=== PATIENT | male | born 1945 | race Caucasian/White ===

== ENCOUNTER 2017-06-02 15:50 | Emergency (ER) | payer MEDICARE, BC ==
[2017-06-02] MEDS ORDERED: Midazolam 1 MG/ML 2 ML SDV IV ONE ×2 (15:51)
[2017-06-02] MEDS ORDERED: ePHEDrine 50 MG/ML SDV IV ONE (15:51)
[2017-06-02] MEDS ORDERED: EPINEPHrine 1:10,000 1 MG/10 ML Syringe IV ONE (15:51)
[2017-06-02] MEDS ORDERED: fentaNYL 100 MCG/2 ML SDV IV ONE ×2 (15:51)
[2017-06-02] MEDS ORDERED: Rocuronium 50 MG/5 ML Vial IV ONE (15:51)
--- NOTE | 2017-06-02 16:09 | EDM.PDOC ---
ED HPI GENERAL MEDICAL PROBLEM - General Stated Complaint: [id number] UNRESPONSIVE Time Seen by Provider: 06/02/17 15:50 Source of Information: Reports: Family History Limitations: Reports: Respiratory Distress - History of Present Illness INITIAL COMMENTS - FREE TEXT/NARRATIVE: This 72 yo male patient was brought to the ED by family due to altered mentation and shortness of breath. The patient was returning to his home from [place]. The patient's family reported that the patient started to have increased difficulties at about [place], but became unresponsive about 10 miles outside of [place]. Upon arrival in the ED, the patient was unresponsive, pale an unable to ambulate. With the assist of 4 individuals, the patient was transferred to the ED bed. The patient was pale with a respiratory rate in the 30's with little effort of breathing. The patient was placed on a non- rebreather which increased his oxygen sat to 98%. The patient was placed on bipap which further stabilized the patient. EKG demonstrated a fib, Trop (-), WBC 14.2. After lab results were received, the patient was sent to radiology for CT. Prior to getting the CT, the patient had a cardiac arrest, CPR was started and the patient was brought back to the ED. CPR was continued. The patient was given 2 doses of EPI and got a return of spontaneous pulse. During CPR, the patient did have a wide complex pulseless V-tach. The patient was given Amniodarone (150). The patient was intubated by anesthesia. [facility] was called for transport. Called [facility] (due to patient's personal history with pulmonology in [place] after consulting family). Dr. Pastor accepted the patient for continued evaluation and management. Onset: Today Duration: Constant Location: Reports: Generalized Quality: Reports: Other Severity: Severe Improves with: Reports: Other (oxygen) Worsens with: Reports: Movement Context: Reports: Other - Related Data Allergies Allergy/AdvReac Type Severity Reaction Status Date / Time No Known Allergies Allergy Verified 06/02/17 16:23 Home Meds: Home Meds Furosemide 06/02/17 [History] Insulin Aspart [NovoLOG] 06/02/17 [History] Insulin Glarg,Human.Rec.Analog [Lantus] 06/02/17 [History] Levothyroxine [Synthroid] 50 mcg PO 06/02/17 [History] Lisinopril [Prinivil] 06/02/17 [History] Metoprolol Tartrate 50 mg PO 06/02/17 [History] Oxybutynin [Oxybutynin ER] 5 mg PO 06/02/17 [History] Rosuvastatin [Crestor] 20 mg PO BEDTIME 06/02/17 [History] ED ROS GENERAL - Review of Systems Review Of Systems: ROS reveals no pertinent complaints other than HPI. ED EXAM, GENERAL - Physical Exam Exam: See Below Exam Limited By: Other (unresponsive) General Appearance: Obtunded, Severe Distress Eye Exam: Bilateral Eye: PERRL Ears: Normal External Exam Nose: Normal Inspection Throat/Mouth: Normal Inspection Head: Atraumatic Neck: Normal Inspection, Supple, Non-Tender, Full Range of Motion Respiratory/Chest: Decreased Breath Sounds Cardiovascular: Irregularly Irregular GI/Abdominal: Distended, Other (morbid obesity) (Male) Exam: Deferred Rectal (Males) Exam: Deferred Neurological: Unresponsive Skin Exam: Pallor Lymphatic: No Adenopathy Course - Vital Signs Last Recorded V/S: Last Vital Signs Temp 35.9 C 06/02/17 16:21 Pulse 71 06/02/17 16:21 Resp BP 189/79 H 06/02/17 16:21 Pulse Ox 100 06/02/17 16:21 - Orders/Labs/Meds Orders: Active Orders 24 hr Category Date Time Status BIPAP [RT BiPAP/CPAP] [RC] ASDIRECTED Care 06/02/17 16:25 Active EKG Documentation Completion [RC] URGENT Care 06/02/17 15:57 Active RT Aerosol Therapy [RC] ASDIRECTED Care 06/02/17 16:35 Active Cervical Spine wo Cont [CT] Urgent Exams 06/02/17 16:38 Ordered Chest 1V Frontal [CR] Urgent Exams 06/02/17 17:19 Ordered Head wo Cont [CT] Urgent Exams 06/02/17 16:38 Ordered ABG [BLOOD GAS ARTERIAL] [BG] Stat Lab 06/02/17 16:33 Ordered Labs: Laboratory Tests 06/02/17 06/02/17 06/02/17 Range/Units 16:07 16:07 16:10 WBC 14.2 H (5.0-10.0) 10^3/uL RBC 5.06 (4.6-6.2) 10^6/uL Hgb 12.3 L (14.0-18.0) g/dL Hct 44.1 (40.0-54.0) % MCV 87.2 (80-100) fL MCH 24.3 L (27.0-34.0) pg MCHC 27.9 L (33.0-35.0) g/dL Plt Count 282 (150-450) 10^3/uL Neut % (Auto) 74.7 (42.2-75.2) % Lymph % (Auto) 14.9 L (20.5-50.1) % [place] % (Auto) 8.6 H (2-8) % Eos % (Auto) 1.5 (1.0-3.0) % Baso % (Auto) 0.3 (0.0-1.0) % Sodium 138 (135-145) mmol/L Potassium 4.4 (3.6-5.0) mmol/L Chloride 98 L (101-111) mmol/L Carbon Dioxide 32.0 H (21.0-31.0) mmol/L Anion Gap 12.4 BUN 29 H (7-18) mg/dL Creatinine 1.3 (0.6-1.3) mg/dL Est Cr Clr Drug Dosing 39.08 mL/min Estimated GFR (MDRD) 54 BUN/Creatinine Ratio 22.30 Glucose 322 H (74-105) mg/dL POC Glucose 325 H (83-110) mg/dl Calcium 8.7 (8.4-10.2) mg/dl Total Bilirubin 0.6 (0.2-1.0) mg/dL AST 32 (10-42) IU/L ALT 16 (10-60) IU/L Alkaline Phosphatase 89 (42-121) IU/L Troponin I < 0.02 (0.00-0.02) ng/ml Total Protein 8.6 H (6.7-8.2) g/dl Albumin 3.6 (3.2-5.5) g/dl Globulin 5.0 Albumin/Globulin Ratio 0.72 Meds: Medications Discontinued Medications Generic Name Dose Route Start Last Admin Trade Name Freq PRN Reason Stop Dose Admin Albuterol/Ipratropium 3 ml 06/02/17 16:34 Duoneb 3.0-0.5 Mg/3 Ml NEB 06/02/17 16:35 ONETIME ONE Albuterol/Ipratropium Confirm 06/02/17 16:36 Duoneb 3.0-0.5 Mg/3 Ml Administered 06/02/17 16:37 Dose 3 ml .ROUTE .STK-MED ONE Departure - Departure Time of Disposition: 18:00 Disposition: DC/Tfer to Acute Hospital 02 Condition: Critical Clinical Impression: Cardiac arrest Respiratory failure Qualifiers: Chronicity: acute Respiratory failure complication: hypoxia Qualified Code(s): J96.01 - Acute respiratory failure with hypoxia - Discharge Information Referrals: John Haider MD [Primary Care Provider] - Forms: Interfacility Transfer EMTALA Care Plan Goals: Discussed the history, examination, lab, EKG, x-ray and treatments with Dr. Pastor ([facility]). Dr. Pastor accepted the patient for continued evaluation and further management. The patient will be treated by [facility]. - My Orders Last 24 Hours: My Active Orders 06/02/17 15:57 EKG Documentation Completion [RC] URGENT 06/02/17 16:25 BIPAP [RT BiPAP/CPAP] [RC] ASDIRECTED 06/02/17 16:33 ABG [BLOOD GAS ARTERIAL] [BG] Stat 06/02/17 16:35 RT Aerosol Therapy [RC] ASDIRECTED 06/02/17 16:38 Cervical Spine wo Cont [CT] Urgent Head wo Cont [CT] Urgent 06/02/17 17:19 Chest 1V Frontal [CR] Urgent - Assessment/Plan Last 24 Hours: My Active Orders 06/02/17 15:57 EKG Documentation Completion [RC] URGENT 06/02/17 16:25 BIPAP [RT BiPAP/CPAP] [RC] ASDIRECTED 06/02/17 16:33 ABG [BLOOD GAS ARTERIAL] [BG] Stat 06/02/17 16:35 RT Aerosol Therapy [RC] ASDIRECTED 06/02/17 16:38 Cervical Spine wo Cont [CT] Urgent Head wo Cont [CT] Urgent 06/02/17 17:19 Chest 1V Frontal [CR] Urgent
[2017-06-02 16:32] LABS: CHLORIDE,CL 98 mmol/L (101-111); SODIUM,NA 138 mmol/L (135-145)
[2017-06-02] MEDS ORDERED: Albuterol/Ipratropium 3.0-0.5 MG/3 ML Neb Soln NEB ONE (16:34)
[2017-06-02] MEDS ORDERED: Albuterol/Ipratropium 3.0-0.5 MG/3 ML Neb Soln ONE (16:36)
[2017-06-02] MEDS ORDERED: Midazolam 1 MG/ML 2 ML SDV ONE (17:39)
[2017-06-02] MEDS ORDERED: fentaNYL 100 MCG/2 ML SDV ONE (17:39)
[2017-06-02] MEDS ORDERED: EPINEPHrine 1:10,000 1 MG/10 ML Syringe ONE (19:05)
--- NOTE | 2017-06-06 13:27 | EKG ---
06/02/2017- SEAN SANTOYO - FINDINGS: EKG, from 3:57 p.m. per my reading, shows an atrial fibrillation with PVC. [facility] /[id number]
--- NOTE | 2017-06-06 13:27 | EKG ---
06/02/2017- SEAN SANTOYO - FINDINGS: EKG, per my reading, shows atrial fibrillation with a ventricular rate of 50s with PVCs. [facility] /[id number]
== END 2017-06-02 18:30 ==
LOC: DL.ED 15:50
DX: I46.9 Cardiac arrest, cause unspecified (principal); J96.01 Acute respiratory failure with hypoxia; Z79.4 Long term (current) use of insulin
CPT/HCPCS: 31500; 36415; 71045; 80053; 82962; 84484; 85025; 92950; 93005; 93010; 94660; 96365; 96375; 96376; 99291; 99292; J0171; J2250; J3010; 99284

== ENCOUNTER 2018-06-07 21:28 | Inpatient (IN) | payer MEDICARE, BC ==
[~2018-06-07 21:28] MED LIST: Albuterol/Ipratropium 3.0-0.5 MG/3 ML Neb Soln NEB ONE; Dexamethasone 4 MG/ML SDV IVPUSH ONE
[2018-06-07] MEDS ORDERED: Furosemide 20 MG/2 ML VIAL IVPUSH ONE (21:30)
[2018-06-07 22:13] LABS: ANION GAP 11.7; CHLORIDE,CL 95 mmol/L (101-111); SODIUM,NA 139 mmol/L (135-145)
[2018-06-07 22:17] LABS: BASE EXCESS ARTERIAL 6 mmol/L ((-2)-(+3)); BICARBONATE,ARTERIAL 37.6 mmol/L (22-26); O2 DELIVERY DEVICE BIPAP; O2 SATURATION ARTERIAL 90 % (95-100); PO2 ARTERIAL 65 mmHg (70-100)
--- NOTE | 2018-06-07 22:44 | EDM.PDOC ---
ED HPI GENERAL MEDICAL PROBLEM - General Chief Complaint: Respiratory Problem Stated Complaint: UNKNOWN Time Seen by Provider: 06/07/18 21:29 Source of Information: Reports: Patient, Family History Limitations: Reports: Other (sob) - History of Present Illness INITIAL COMMENTS - FREE TEXT/NARRATIVE: family states pt been having respiratory problems for many years and sometimes he need a good "blow-out" with BiPAP. and concepcion pt can be here for 12 hours for this. explained to family the lack of appropriate medical back-up here but will check with [facility]. 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 Lower Back Pain Score (Numeric/FACES): 8 - Related Data Allergies Allergy/AdvReac Type Severity Reaction Status Date / Time No Known Allergies Allergy Verified 06/07/18 21:36 Home Meds: Home Meds Furosemide 06/02/17 [History] Insulin Aspart [NovoLOG] 06/02/17 [History] Insulin Glarg,Human.Rec.Analog [Lantus] 06/02/17 [History] Levothyroxine [Synthroid] 50 mcg PO 06/02/17 [History] Lisinopril [Prinivil] 06/02/17 [History] Metoprolol Tartrate 50 mg PO 06/02/17 [History] Oxybutynin [Oxybutynin ER] 5 mg PO 06/02/17 [History] Rosuvastatin [Crestor] 20 mg PO BEDTIME 06/02/17 [History] Past Medical History Cardiovascular History: Reports: Afib, Heart Failure, Hypertension Respiratory History: Reports: Asthma, COPD, Intubation, Difficult Musculoskeletal History: Reports: Osteoporosis Psychiatric History: Reports: Anxiety Endocrine/Metabolic History: Reports: Diabetes, Type I Oncologic (Cancer) History: Reports: Bladder Social & Family History - Family History Family Medical History: Noncontributory - Tobacco Use Smoking Status *Q: Unknown Ever Smoked - Caffeine Use Caffeine Use: Reports: Coffee - Recreational Drug Use Recreational Drug Use: No ED ROS GENERAL - Review of Systems Review Of Systems: ROS reveals no pertinent complaints other than HPI. ED EXAM, GENERAL - Physical Exam Exam: See Below Exam Limited By: Respiratory Distress General Appearance: Alert, Moderate Distress Ears: Hearing Grossly Normal Throat/Mouth: Normal Voice, No Airway Compromise Head: Atraumatic Neck: Non-Tender, Full Range of Motion Respiratory/Chest: Decreased Breath Sounds, Crackles, Rales, Rhonchi, Wheezing, Accessory Muscle Use Cardiovascular: Regular Rate, Rhythm GI/Abdominal: Soft, Non-Tender Neurological: Alert, Normal Cognition Psychiatric: Flat Affect Skin Exam: Warm, Dry, Normal Color Lymphatic: No Adenopathy Course - Vital Signs Last Recorded V/S: Last Vital Signs Temp 36.7 C 06/07/18 21:35 Pulse 132 H 06/07/18 22:54 Resp 24 H 06/07/18 21:35 BP 195/76 H 06/07/18 21:35 Pulse Ox 71 L 06/07/18 21:35 - Orders/Labs/Meds Orders: Active Orders 24 hr Category Date Time Status EKG Documentation Completion [RC] STAT Care 06/07/18 21:26 Active RT Aerosol Therapy [RC] ASDIRECTED Care 06/07/18 21:26 Active RT BiPAP/CPAP [RC] ASDIRECTED Care 06/07/18 22:53 Active ABG [BLOOD GAS ARTERIAL] [BG] Stat Lab 06/07/18 22:06 Ordered ABG [BLOOD GAS ARTERIAL] [BG] Stat Lab 06/07/18 23:25 Ordered CULTURE BLOOD [BC] Stat Lab 06/07/18 21:49 Received Labs: Laboratory Tests 06/07/18 06/07/18 06/07/18 Range/Units 21:49 21:49 21:49 WBC 17.0 H (5.0-10.0) 10^3/uL RBC 4.73 (4.6-6.2) 10^6/uL Hgb 13.7 L (14.0-18.0) g/dL Hct 44.7 (40.0-54.0) % MCV 94.5 D (80-100) fL MCH 29.0 (27.0-34.0) pg MCHC 30.6 L (33.0-35.0) g/dL Plt Count 270 (150-450) 10^3/uL Neut % (Auto) 76.2 H (42.2-75.2) % Lymph % (Auto) 16.0 L (20.5-50.1) % [place] % (Auto) 4.3 (2-8) % Eos % (Auto) 3.3 H (1.0-3.0) % Baso % (Auto) 0.2 (0.0-1.0) % Sodium 139 (135-145) mmol/L Potassium 3.7 (3.6-5.0) mmol/L Chloride 95 L (101-111) mmol/L Carbon Dioxide 36.0 H (21.0-31.0) mmol/L Anion Gap 11.7 BUN 20 H (7-18) mg/dL Creatinine 0.8 (0.6-1.3) mg/dL Est Cr Clr Drug Dosing 78.38 mL/min Estimated GFR (MDRD) > 60 BUN/Creatinine Ratio 25.00 Glucose 293 H (74-105) mg/dL Lactic Acid 1.4 (0.5-2.2) mmol/L Calcium 8.5 (8.4-10.2) mg/dl Total Bilirubin 0.6 (0.2-1.0) mg/dL AST 18 (10-42) IU/L ALT 12 (10-60) IU/L Alkaline Phosphatase 103 (42-121) IU/L Troponin I < 0.02 (0.00-0.02) ng/ml B-Natriuretic Peptide 58 (0-100) pg/ml Total Protein 8.5 H (6.7-8.2) g/dl Albumin 3.4 (3.2-5.5) g/dl Globulin 5.1 Albumin/Globulin Ratio 0.67 Meds: Medications Discontinued Medications Generic Name Dose Route Start Last Admin Trade Name Freq PRN Reason Stop Dose Admin Albuterol/Ipratropium 3 ml 06/07/18 21:25 06/07/18 21:59 Duoneb 3.0-0.5 Mg/3 Ml NEB 06/07/18 21:26 3 ml ONETIME ONE Administration Dexamethasone 12 mg 06/07/18 21:25 06/07/18 21:59 Dexamethasone IVPUSH 06/07/18 21:26 12 mg ONETIME ONE Administration Furosemide 20 mg 06/07/18 21:30 06/07/18 22:02 Lasix IVPUSH 06/07/18 21:31 20 mg ONETIME ONE Administration - Re-Assessments/Exams Free Text/Narrative Re-Assessment/Exam: 06/07/18 22:54 results discussed with family who state they have decided pt want to be DNR. case discussed with Dr Cintron who states will come in to eval' Departure - Departure Time of Disposition: 23:32 Disposition: Admitted As Inpatient 65 Condition: Fair Clinical Impression: COPD exacerbation, DNR no code (do not resuscitate), Acute respiratory distress - Discharge Information Forms: ED Department Discharge - My Orders Last 24 Hours: My Active Orders 06/07/18 21:26 EKG Documentation Completion [RC] STAT RT Aerosol Therapy [RC] ASDIRECTED 06/07/18 21:49 CULTURE BLOOD [BC] Stat 06/07/18 22:06 ABG [BLOOD GAS ARTERIAL] [BG] Stat 06/07/18 22:53 RT BiPAP/CPAP [RC] ASDIRECTED 06/07/18 23:25 ABG [BLOOD GAS ARTERIAL] [BG] Stat - Assessment/Plan Last 24 Hours: My Active Orders 06/07/18 21:26 EKG Documentation Completion [RC] STAT RT Aerosol Therapy [RC] ASDIRECTED 06/07/18 21:49 CULTURE BLOOD [BC] Stat 06/07/18 22:06 ABG [BLOOD GAS ARTERIAL] [BG] Stat 06/07/18 22:53 RT BiPAP/CPAP [RC] ASDIRECTED 06/07/18 23:25 ABG [BLOOD GAS ARTERIAL] [BG] Stat
[2018-06-07 23:30] LABS: BASE EXCESS ARTERIAL 6 mmol/L ((-2)-(+3)); BICARBONATE,ARTERIAL 35.8 mmol/L (22-26); O2 DELIVERY DEVICE BIPAP; O2 SATURATION ARTERIAL 89 % (95-100); PO2 ARTERIAL 62 mmHg (70-100)
[2018-06-07 23:37] LABS: PCO2 ARTERIAL 100 mmHg (35-45)
[2018-06-07 23:39] LABS: PCO2 ARTERIAL 84 mmHg (35-45)
[2018-06-07] MEDS ORDERED: LORazepam 2 MG/ML Syringe IVPUSH PRN (23:45)
[2018-06-07] MEDS ORDERED: Ondansetron 4 MG/2 ML SDV IVPUSH PRN (23:45)
[2018-06-08] MEDS: Piperacillin/Tazobactam 3.375 GM in Sodium Chloride 0.9% 100 ML IV SCH ×3 (00:30→11:56)
[2018-06-08] MEDS: Albuterol/Ipratropium 3.0-0.5 MG/3 ML Neb Soln NEB SCH ×3 (00:45→07:22)
[2018-06-08 07:13] LABS: ANION GAP 18.1; CHLORIDE,CL 94 mmol/L (101-111); SODIUM,NA 137 mmol/L (135-145)
[2018-06-08 08:21] LABS: ALLEN TEST PERFORMED; BASE EXCESS ARTERIAL 4 mmol/L ((-2)-(+3)); BICARBONATE,ARTERIAL 34.4 mmol/L (22-26); O2 DELIVERY DEVICE BIPAP; O2 SATURATION ARTERIAL 98 % (95-100); PCO2 ARTERIAL 90 mmHg (35-45); PO2 ARTERIAL 108 mmHg (70-100)
[2018-06-08] MEDS ORDERED: Enoxaparin 40 MG/0.4 ML Syringe SUBCUT SCH (09:00)
[2018-06-08] MEDS ORDERED: Nystatin Topical Powder 30 GM Bottle TOP PRN (09:34)
[2018-06-08] MEDS ORDERED: Insulin Glarg,Human.Rec.Analog 100 UNIT/ML ML SUBCUT STA (09:41)
[2018-06-08] MEDS ORDERED: Metoprolol Tartrate 50 MG Tab PO SCH (09:45)
[2018-06-08] MEDS ORDERED: Non-Formulary Medication 1 Each (Potassium Gluconate [Potassium] 99 MG) PO SCH (09:45)
[2018-06-08] MEDS ORDERED: Non-Formulary Medication 1 Each (Formoterol Fumarate [Perforomist] 2 ML) NEB SCH (09:45)
[2018-06-08] MEDS ORDERED: Dexamethasone 4 MG/ML SDV IVPUSH SCH (10:00)
[2018-06-08] MEDS ORDERED: Furosemide 20 MG Tab PO SCH (11:00)
[2018-06-08] MEDS ORDERED: Albuterol/Ipratropium 3.0-0.5 MG/3 ML Neb Soln NEB SCH (11:00)
[2018-06-08] MEDS ORDERED: Insulin Lispro 100 Units/ML 3 ML Vial SUBCUT SCH (14:00)
[2018-06-08] MEDS ORDERED: Rosuvastatin 10 MG Tab PO SCH (21:00)
--- NOTE | 2018-06-08 22:31 | HP ---
HISTORY OF PRESENT ILLNESS: Prashanth is a 73-year-old man, who presented to the ER this evening after being found quite somnolent at home. His daughters were over to check on him and noted that he looked quite hypoxic. Prashanth has a significant past history of oxygen-dependent COPD, and he is currently on a BiPAP when sleeping at night. It sounds from the story that he gives me in the ED that he has been feeling somewhat poorly over today, and was eating some ice cream, when he may have aspirated a little bit of this. The rest of the evening, he felt quite poorly, and then fell asleep. Ambulance reports that when they found him, he was in the high 60s on oxygen saturations. As he presented to the ED, he was noted to have a pH of 7.2 with a pCO2 of 100, and a pO2 of 60. Bicarbonate was noted to be high at 38. He was placed on BiPAP with a pressure of 20/12 at anywhere between 60% and 80% FiO2. His repeat blood gas 1 hour later showed him to improve to 7.25 pH with a pCO2 of 84. Decision was then made to admit him on BiPAP therapy. PAST MEDICAL HISTORY: 1. Diabetes mellitus type 2, currently on insulin. 2. Obstructive sleep apnea, severe, currently on BiPAP. 3. Hyperlipidemia. 4. Severe oxygen-dependent COPD. 5. History of coronary artery disease with history of multiple angiograms and angioplasty. 6. History of ankylosing spondylitis. PAST SURGICAL HISTORY: 1. Umbilical hernia repair. 2. Tonsillectomy/adenoidectomy. 3. Left hip arthroplasty in 1989. 4. History of multiple angiograms including an angioplasty in 2002. SOCIAL HISTORY: He lives on his own and takes care of himself here in [facility]. He was a [id number] smoker at 1 time. REVIEW OF SYSTEMS: See HPI, rest of his review of systems is complete and negative. PHYSICAL EXAMINATION: VITAL SIGNS: Pulse is 105; blood pressure 148/60; oxygen saturation with an FiO2 of 60% on BiPAP ventilation is anywhere between 85 and 90, which is the ideal range for him. GENERAL: Prashanth is a pleasant 73-year-old man, who already is starting to feel better now on BiPAP. HEENT: Oropharynx is clear, mucous membranes are moist. LUNGS: He has very poor air movement throughout both lung armstrong, I am not really able to hear any exchange in the bases whatsoever. HEART: Regular rate and rhythm; no murmurs, rubs, or gallops. ABDOMEN: Soft, nontender to palpation. LABORATORY WORK: Please see HPI. The rest of his laboratory work shows a potassium of 5.1, chloride of 94, bicarb of 36, creatinine 1.0, glucose 293. BNP 58. Troponin negative. Lactate 1.4. Chest x-ray shows poor aeration of the lungs, and possible pulmonary edema versus infiltrate. ASSESSMENT: 1. Acute exacerbation of severe oxygen-dependent chronic obstructive pulmonary disease. 2. Possible aspiration pneumonia. 3. History of diabetes mellitus type 2, insulin controlled. 4. History of ankylosing spondylitis with very poor range of motion of his back. 5. History of coronary artery disease. 6. History of obstructive sleep apnea, currently on BiPAP. PLAN: We will keep him on BiPAP with his current pressure settings, we will try to keep his FiO2 as low as possible to allow for proper air mixing in his lungs. I am hopeful that by morning, his overall status will have improved. I did offer him in the ED to have him transferred to [facility] in [place], family declined this and would like to try him here and see how he does going forward. We will reassess him in the morning. [facility] /[id number]
--- NOTE | 2018-06-09 07:11 | DISCH ---
HISTORY: Prashanth is a 73-year-old man who was admitted very late last night with acute COPD exacerbation. He was found to be quite acidotic and hypercapnic upon arrival to the ED. The family declined transfer to a tertiary care center, noting that he is DNR/DNI and that they have been told in the past, there is not much more that can be done for his severe respiratory decline. He was admitted on pressure support with BiPAP as well as IV antibiotics for a possible aspiration pneumonia. HOSPITAL COURSE: On the morning of hospital day #1, repeat blood gas showed him to still have a low pH of 7.21 with a pCO2 of 90 and a pO2 of 108. Prashanth himself states that he feels much better and requested discharge home. I had a long conversation with Prashanth as well as his daughters, that even though from a respiratory status, he is used to the acidosis and hypercapnia and is overall feeling well, we discussed that the accommodated respiratory acidosis is making his kidneys quite overworked and that he could go into acute kidney failure at any time. Prashanth himself voiced understanding of this and still reiterated his desire to return home. DISCHARGE DIAGNOSES: 1. Severe oxygen-dependent chronic obstructive pulmonary disease with acute exacerbation. 2. Compensated respiratory acidosis. 3. History of diabetes mellitus type 2. 4. History of coronary artery disease. PLAN: 1. I will send him home on a 10-day prednisone taper. 2. I will also send him home on doxycycline 100 mg twice a day for 7 days. 3. I discussed his case with his primary physician, Dr. Haider to update him on the status and then Prashanth elected not to have any further aggressive treatment for his COPD. They are able to squeeze him in early next week for family conference to discuss future treatment plans for Prashanth. [facility] /[id number]
== END 2018-06-08 13:30 | disposition home or self-care (01) | DRG 178 ==
LOC: DL.ED 21:28 → DL.MS 23:43
PROVIDERS: ADMIT Family Medicine; ATTEND Family Medicine
PROC: 5A09357 Assistance with Respiratory Ventilation, Less than 24 Consecutive Hours, Continuous Positive Airway Pressure (ICD-10-PCS; principal; 2018-06-07)
DX: J69.0 Pneumonitis due to inhalation of food and vomit (principal); J44.1 Chronic obstructive pulmonary disease with (acute) exacerbation; E87.2 Acidosis; E11.9 Type 2 diabetes mellitus without complications; E78.5 Hyperlipidemia, unspecified; G47.33 Obstructive sleep apnea (adult) (pediatric); R06.02 Shortness of breath; I25.10 Atherosclerotic heart disease of native coronary artery without angina pectoris; Z96.642 Presence of left artificial hip joint; F17.210 Nicotine dependence, cigarettes, uncomplicated; Z79.890 Hormone replacement therapy; Z79.4 Long term (current) use of insulin; Z79.899 Other long term (current) drug therapy; I48.91 Unspecified atrial fibrillation; I50.9 Heart failure, unspecified; Z99.81 Dependence on supplemental oxygen; I11.0 Hypertensive heart disease with heart failure; Z95.5 Presence of coronary angioplasty implant and graft; Z90.89 Acquired absence of other organs; J44.9 Chronic obstructive pulmonary disease, unspecified; M81.0 Age-related osteoporosis without current pathological fracture; F41.9 Anxiety disorder, unspecified; E10.9 Type 1 diabetes mellitus without complications; Z85.51 Personal history of malignant neoplasm of bladder; R06.03 Acute respiratory distress; R06.2 Wheezing; Z66 Do not resuscitate
CPT/HCPCS: 36415; 36600 ×2; 71045; 80053; 82803 ×2; 83605; 83880; 84484; 85025; 87040; 93005; 94640 ×2; 94660; 96374; 96375; 99285; J1100; J1940; A9270-GY; J1815-GY; J2543; J7050; J7620-GY

== ENCOUNTER 2018-07-21 04:26 | Inpatient (IN) | payer MEDICARE, BC, MEDICAID ==
--- NOTE | 2018-07-21 04:49 | EDM.PDOC ---
ED HPI GENERAL MEDICAL PROBLEM - General Chief Complaint: Respiratory Problem Stated Complaint: AMBULANCE-UNKNOWN Time Seen by Provider: 07/21/18 04:34 Source of Information: Reports: Family History Limitations: Reports: No Limitations - History of Present Illness INITIAL COMMENTS - FREE TEXT/NARRATIVE: This 73 yo male patient was brought to the ED due to increased shortness of breath. The patient's family reports the patient has had low oxygen levels throughout the week, but it has been getting much worse. The patient is a DNR/ DNI and does not want to be transferred to [place] to see pulmonology. The patient 's daughter reports that the patient got a new mask for his bipap this past week , but doesn't believe the mask has been working well. Yesterday, the patient used his old mask which seemed to improve his oxygen level for a short time. Last night, the patient was eating ice cream, started to cough and began to have increased shortness of breath and lower oxygen levels. The ambulance was called when the patient's oxygen level was below 70%. Onset Date: 07/17/18 Duration: Constant, Getting Worse Location: Reports: Chest Quality: Reports: Other Severity: Severe Improves with: Reports: None Worsens with: Reports: None Context: Reports: Other Associated Symptoms: Reports: Shortness of Breath - Related Data Allergies Allergy/AdvReac Type Severity Reaction Status Date / Time No Known Allergies Allergy Verified 06/08/18 00:14 Home Meds: Home Meds Furosemide 20 mg PO DAILY 06/02/17 [History] Insulin Aspart [NovoLOG] 10 units SQ TID 06/02/17 [History] Insulin Glarg,Human.Rec.Analog [Lantus] 24 units SQ BEDTIME 06/02/17 [History] Levothyroxine [Synthroid] 50 mcg PO DAILY 06/02/17 [History] Metoprolol Tartrate 50 mg PO BID 06/02/17 [History] Rosuvastatin [Crestor] 20 mg PO BEDTIME 06/02/17 [History] Doxycycline Monohydrate 100 mg PO BID #20 capsule 06/08/18 [Rx] Formoterol Fumarate [Perforomist] 2 ml NEB BID 06/08/18 [History] Nystatin 1 dose TOP BID PRN 06/08/18 [History] Potassium Gluconate [Potassium] 99 mg PO DAILY 06/08/18 [History] predniSONE 5 mg PO ASDIRECTED #55 tablet 06/08/18 [Rx] Past Medical History HEENT History: Reports: Impaired Vision Other HEENT History: wears glasses Cardiovascular History: Reports: Afib, Heart Failure, Hypertension Respiratory History: Reports: Asthma, COPD, Intubation, Difficult Musculoskeletal History: Reports: Osteoporosis Psychiatric History: Reports: Anxiety Endocrine/Metabolic History: Reports: Diabetes, Type I, Hypothyroidism, Obesity/ BMI 30+ Oncologic (Cancer) History: Reports: Bladder - Past Surgical History HEENT Surgical History: Reports: Other (See Below) Other HEENT Surgeries/Procedures: tracheotomy Social & Family History - Family History Family Medical History: Noncontributory - Caffeine Use Caffeine Use: Reports: None ED ROS GENERAL - Review of Systems Review Of Systems: ROS reveals no pertinent complaints other than HPI. ED EXAM, GENERAL - Physical Exam Exam: See Below Exam Limited By: No Limitations General Appearance: Alert, WD/WN, Severe Distress, Obese Eye Exam: Bilateral Eye: EOMI, Normal Inspection, PERRL Ears: Normal External Exam, Normal Canal, Hearing Grossly Normal, Normal TMs Nose: Normal Inspection, Normal Mucosa, No Blood Throat/Mouth: Normal Inspection, Normal Lips, Normal Teeth, Normal Gums, Normal Oropharynx, Normal Voice, No Airway Compromise Head: Atraumatic, Normocephalic Neck: Normal Inspection, Supple, Non-Tender, Full Range of Motion Respiratory/Chest: Decreased Breath Sounds, Crackles, Rhonchi Cardiovascular: Tachycardia GI/Abdominal: Normal Bowel Sounds, Soft, Non-Tender, No Organomegaly, No Distention, No Abnormal Bruit, No Mass, Pelvis Stable, Other (obese) (Male) Exam: Deferred Rectal (Males) Exam: Deferred Back Exam: Normal Inspection, Full Range of Motion, NT Extremities: Normal Inspection, Normal Range of Motion, Non-Tender, Normal Capillary Refill, No Pedal Edema Neurological: Alert, Oriented, CN II-XII Intact, Normal Cognition, Normal Gait, Normal Reflexes, No Motor/Sensory Deficits Psychiatric: Normal Affect, Normal Mood Skin Exam: Warm, Dry, Intact, Normal Color, No Rash Lymphatic: No Adenopathy Course - Vital Signs Last Recorded V/S: Last Vital Signs Temp 37.2 C 07/21/18 04:27 Pulse 134 H 07/21/18 05:37 Resp 49 H 07/21/18 05:37 BP 160/54 H 07/21/18 05:37 Pulse Ox 90 L 07/21/18 05:37 - Orders/Labs/Meds Orders: Active Orders 24 hr Category Date Time Status EKG Documentation Completion [RC] URGENT Care 07/21/18 04:30 Active CULTURE BLOOD [BC] Stat Lab 07/21/18 04:50 Received CULTURE BLOOD [] Stat Lab 07/21/18 05:28 Ordered Azithromycin [Zithromax] 500 mg Med 07/21/18 06:34 Ordered Sodium Chloride 0.9% [Normal Saline] 250 ml IV ONETIME cefTRIAXone [Rocephin] 1 gm Med 07/21/18 05:53 Ordered Sodium Chloride 0.9% [Normal Saline] 50 ml IV ONETIME Medication Orders Ceftriaxone Sodium 1 gm/ (Sodium Chloride) 50 mls @ 50 mls/hr IV ONETIME ONE Stop: 07/21/18 06:52 Last Admin: 07/21/18 06:15 Dose: 50 mls/hr Azithromycin 500 mg/ Sodium (Chloride) 250 mls @ 250 mls/hr IV ONETIME ONE Stop: 07/21/18 07:33 Labs: Laboratory Tests 07/21/18 07/21/18 07/21/18 Range/Units 04:25 04:25 04:25 WBC 17.6 H (5.0-10.0) 10^3/uL RBC 4.74 (4.6-6.2) 10^6/uL Hgb 13.8 L (14.0-18.0) g/dL Hct 46.0 (40.0-54.0) % MCV 97.0 (80-100) fL MCH 29.1 (27.0-34.0) pg MCHC 30.0 L (33.0-35.0) g/dL Plt Count 206 (150-450) 10^3/uL Neut % (Auto) 90.6 H (42.2-75.2) % Lymph % (Auto) 4.5 L (20.5-50.1) % [place] % (Auto) 4.0 (2-8) % Eos % (Auto) 0.6 L (1.0-3.0) % Baso % (Auto) 0.3 (0.0-1.0) % Sodium 139 (135-145) mmol/L Potassium 4.6 (3.6-5.0) mmol/L Chloride 93 L (101-111) mmol/L Carbon Dioxide 34.0 H (21.0-31.0) mmol/L Anion Gap 16.6 BUN 23 H (7-18) mg/dL Creatinine 1.0 (0.6-1.3) mg/dL Est Cr Clr Drug Dosing TNP Estimated GFR (MDRD) > 60 BUN/Creatinine Ratio 23.00 Glucose 212 H (74-105) mg/dL POC Glucose (83-110) mg/dl Lactic Acid (0.5-2.2) mmol/L Calcium 8.7 (8.4-10.2) mg/dl Total Bilirubin 0.9 (0.2-1.0) mg/dL AST 21 (10-42) IU/L ALT 10 (10-60) IU/L Alkaline Phosphatase 90 (42-121) IU/L Troponin I < 0.02 (0.00-0.02) ng/ml B-Natriuretic Peptide 88 (0-100) pg/ml Total Protein 8.1 (6.7-8.2) g/dl Albumin 3.6 (3.2-5.5) g/dl Globulin 4.5 Albumin/Globulin Ratio 0.80 07/21/18 07/21/18 Range/Units 04:48 04:50 WBC (5.0-10.0) 10^3/uL RBC (4.6-6.2) 10^6/uL Hgb (14.0-18.0) g/dL Hct (40.0-54.0) % MCV (80-100) fL MCH (27.0-34.0) pg MCHC (33.0-35.0) g/dL Plt Count (150-450) 10^3/uL Neut % (Auto) (42.2-75.2) % Lymph % (Auto) (20.5-50.1) % [place] % (Auto) (2-8) % Eos % (Auto) (1.0-3.0) % Baso % (Auto) (0.0-1.0) % Sodium (135-145) mmol/L Potassium (3.6-5.0) mmol/L Chloride (101-111) mmol/L Carbon Dioxide (21.0-31.0) mmol/L Anion Gap BUN (7-18) mg/dL Creatinine (0.6-1.3) mg/dL Est Cr Clr Drug Dosing Estimated GFR (MDRD) BUN/Creatinine Ratio Glucose (74-105) mg/dL POC Glucose 213 H (83-110) mg/dl Lactic Acid 1.4 (0.5-2.2) mmol/L Calcium (8.4-10.2) mg/dl Total Bilirubin (0.2-1.0) mg/dL AST (10-42) IU/L ALT (10-60) IU/L Alkaline Phosphatase (42-121) IU/L Troponin I (0.00-0.02) ng/ml B-Natriuretic Peptide (0-100) pg/ml Total Protein (6.7-8.2) g/dl Albumin (3.2-5.5) g/dl Globulin Albumin/Globulin Ratio Meds: Medications Generic Name Dose Route Start Last Admin Trade Name Freq PRN Reason Stop Dose Admin Ceftriaxone Sodium 1 gm/ 50 mls @ 50 mls/hr 07/21/18 05:53 07/21/18 06:15 Sodium Chloride IV 07/21/18 06:52 50 mls/hr ONETIME ONE Administration Azithromycin 500 mg/ Sodium 250 mls @ 250 mls/hr 07/21/18 06:34 Chloride IV 07/21/18 07:33 ONETIME ONE Departure - Departure Time of Disposition: 06:35 Disposition: Admitted As Inpatient 65 Condition: Poor Clinical Impression: COPD exacerbation Pneumonia Qualifiers: Pneumonia type: due to unspecified organism Laterality: unspecified laterality Lung location: unspecified part of lung Qualified Code(s): J18.9 - Pneumonia, unspecified organism - Discharge Information *PRESCRIPTION DRUG MONITORING PROGRAM REVIEWED*: Not Applicable *COPY OF PRESCRIPTION DRUG MONITORING REPORT IN PATIENT ISAAC: Not Applicable Forms: ED Department Discharge Care Plan Goals: Discussed the examination, history, lab, x-ray and treatments with Dr. Zabala. Dr. Zabala accepted the patient for continued evaluation and management as an inpatient at [facility]. - My Orders Last 24 Hours: My Active Orders 07/21/18 04:30 EKG Documentation Completion [RC] URGENT 07/21/18 04:50 CULTURE BLOOD [BC] Stat 07/21/18 05:28 CULTURE BLOOD [BC] Stat 07/21/18 05:53 cefTRIAXone [Rocephin] 1 gm Sodium Chloride 0.9% [Normal Saline] 50 ml IV ONETIME 07/21/18 06:34 Azithromycin [Zithromax] 500 mg Sodium Chloride 0.9% [Normal Saline] 250 ml IV ONETIME - Assessment/Plan Last 24 Hours: My Active Orders 07/21/18 04:30 EKG Documentation Completion [RC] URGENT 07/21/18 04:50 CULTURE BLOOD [BC] Stat 07/21/18 05:28 CULTURE BLOOD [BC] Stat 07/21/18 05:53 cefTRIAXone [Rocephin] 1 gm Sodium Chloride 0.9% [Normal Saline] 50 ml IV ONETIME 07/21/18 06:34 Azithromycin [Zithromax] 500 mg Sodium Chloride 0.9% [Normal Saline] 250 ml IV ONETIME
[2018-07-21] MEDS ORDERED: cefTRIAXone 1 GM in Sodium Chloride 0.9% 50 ML IV ONE (05:53)
[2018-07-21 05:58] LABS: ANION GAP 16.6; CHLORIDE,CL 93 mmol/L (101-111); SODIUM,NA 139 mmol/L (135-145)
[2018-07-21] MEDS ORDERED: Azithromycin 500 MG in Sodium Chloride 0.9% 250 ML IV ONE (06:34)
[2018-07-21 09:59] LABS: BASE EXCESS ARTERIAL 8 mmol/L ((-2)-(+3)); BICARBONATE,ARTERIAL 40.7 mmol/L (22-26); O2 DELIVERY DEVICE HI FLOW NASAL CANNU; O2 SATURATION ARTERIAL 95 % (95-100); PO2 ARTERIAL 82 mmHg (70-100)
[2018-07-21 10:01] LABS: ALLEN TEST PERFORMED; PCO2 ARTERIAL 112 mmHg (35-45)
[2018-07-21] MEDS ORDERED: Sodium Chloride 0.9% 10 ML Syringe FLUSH PRN ×2 (12:38)
[2018-07-21] MEDS ORDERED: Levothyroxine 100 MCG Vial IVPUSH SCH ×2 (12:45→13:15)
[2018-07-21] MEDS ORDERED: Insulin Lispro 100 Units/ML 3 ML Vial SUBCUT PRN (12:45)
[2018-07-21] MEDS: FORMOTEROL 20 MCG/2 ML INH SCH ×2 (12:45→21:39)
--- NOTE | 2018-07-21 12:53 | PCM.HP ---
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 The patient is unable to give a history due to altered mental status. Daughter was at the bedside and she provided history. Patient reportedly had some ice cream yesterday and choked on it, and since then has had difficulty breathing with lapse into altered mental status later in the night Patient does have a history of poor swallowing, high aspiration risk, but he has preferred to have quality of life with regular diet, rather than restrictions to diet or feeding tube. he does have a history of recurrent aspiration, chronic respiratory failure and has a home BiPAP support. In the ED, chest x-ray showed low lung volumes, he was hypoxic and was stated on BiPAP. Had that an ABG when he came down to the flow rates are markedly severe hypercapnia with a partial pressure of carbon dioxide of 112 MMHG. Patient is DNR/DNI. Onset of Symptoms: Reports: Sudden - Related Data Allergies/Adverse Reactions: Allergies Allergy/AdvReac Type Severity Reaction Status Date / Time No Known Allergies Allergy Verified 07/21/18 08:34 Home Medications: Home Meds Insulin Aspart [NovoLOG] 10 units SQ TIDMEALS 06/02/17 [History] Insulin Glarg,Human.Rec.Analog [Lantus] 24 units SQ BEDTIME 06/02/17 [History] Levothyroxine [Synthroid] 50 mcg PO DAILY 06/02/17 [History] Metoprolol Tartrate 50 mg PO BID 06/02/17 [History] Rosuvastatin [Crestor] 20 mg PO WITHDINNER 06/02/17 [History] Formoterol Fumarate [Perforomist] 2 ml NEB BID 06/08/18 [History] Nystatin 1 applic TOP BID PRN 06/08/18 [History] Potassium Gluconate [Potassium] 99 mg PO DAILY 06/08/18 [History] Budesonide [Pulmicort] 2 ml INH DAILY 07/21/18 [History] Furosemide 20 mg PO DAILY 07/21/18 [History] Ipratropium [Atrovent] 2.5 ml INH TID 07/21/18 [History] Past Medical History HEENT History: Reports: Hard of Hearing, Impaired Vision Other HEENT History: wears glasses Cardiovascular History: Reports: Afib, Heart Failure, Hypertension Respiratory History: Reports: Asthma, COPD, Intubation, Difficult, Sleep Apnea, Other (See Below) Other Respiratory History: uses Bipap at bedtime Genitourinary History: Reports: Dialysis, Other (See Below) Other Genitourinary History: Kidney failure Musculoskeletal History: Reports: Osteoporosis Psychiatric History: Reports: Anxiety Endocrine/Metabolic History: Reports: Diabetes, Type I, Hypothyroidism, Obesity/ BMI 30+ Oncologic (Cancer) History: Reports: Bladder Dermatologic History: Reports: Other (See Below) Other Dermatologic History: wounds to legs and butt - Infectious Disease History Infectious Disease History: Reports: MRSA - Past Surgical History HEENT Surgical History: Reports: Adenoidectomy, Tonsillectomy, Other (See Below) Other HEENT Surgeries/Procedures: tracheotomy Cardiovascular Surgical History: Reports: Other (See Below) Other Cardiovascular Surgeries/Procedures: Angiogram Respiratory Surgical History: Reports: None Endocrine Surgical History: Reports: None Musculoskeletal Surgical History: Reports: Hip Replacement Oncologic Surgical History: Reports: Other (See Below) Other Oncologic Surgeries/Procedures: Removal of tumor Social & Family History - Family History Family Medical History: Noncontributory - Tobacco Use Smoking Status *Q: Former Smoker Used Tobacco, but Quit: Yes Month/Year Tobacco Last Used: 2000 Second Hand Smoke Exposure: No - Caffeine Use Caffeine Use: Reports: None - Recreational Drug Use Recreational Drug Use: No H&P Review of Systems - Review of Systems: Review Of Systems: Unable To Obtain (altered mental status, patient is fairly obtunded and unable to answer questions. at baseline, he is verbal and engages in conversation.) Exam - Exam Exam: See Below - Vital Signs Vital Signs: Last Vital Signs Temp 37.8 C 07/21/18 08:40 Pulse 120 H 07/21/18 08:40 Resp 44 H 07/21/18 08:40 BP 146/58 H 07/21/18 08:40 Pulse Ox 93 L 07/21/18 08:40 Weight: 105.415 kg - Exam General: Obtunded HEENT: Nares Patent, Normal Nasal Septum, Posterior Pharynx Clear Neck: Supple, Trachea Midline Lungs: Crackles Cardiovascular: Regular Rate, Regular Rhythm GI/Abdominal Exam: Normal Bowel Sounds, Soft, Non-Tender Extremities: Normal Inspection. No: Pedal Edema - Patient Data Lab Results Last 24 hrs: Laboratory Results - last 24 hr 07/21/18 07/21/18 07/21/18 Range/Units 04:25 04:25 04:25 WBC 17.6 H (5.0-10.0) 10^3/uL RBC 4.74 (4.6-6.2) 10^6/uL Hgb 13.8 L (14.0-18.0) g/dL Hct 46.0 (40.0-54.0) % MCV 97.0 (80-100) fL MCH 29.1 (27.0-34.0) pg MCHC 30.0 L (33.0-35.0) g/dL Plt Count 206 (150-450) 10^3/uL Neut % (Auto) 90.6 H (42.2-75.2) % Lymph % (Auto) 4.5 L (20.5-50.1) % [place] % (Auto) 4.0 (2-8) % Eos % (Auto) 0.6 L (1.0-3.0) % Baso % (Auto) 0.3 (0.0-1.0) % ABG pH (7.35-7.45) ABG pCO2 (35-45) mmHg ABG pO2 (70-100) mmHg ABG HCO3 (22-26) mmol/L ABG O2 Saturation (95-100) % ABG Base Excess ((-2)-(+3)) mmol/L Chriss Test O2 Delivery Device Sodium 139 (135-145) mmol/L Potassium 4.6 (3.6-5.0) mmol/L Chloride 93 L (101-111) mmol/L Carbon Dioxide 34.0 H (21.0-31.0) mmol/L Anion Gap 16.6 BUN 23 H (7-18) mg/dL Creatinine 1.0 (0.6-1.3) mg/dL Est Cr Clr Drug Dosing TNP Estimated GFR (MDRD) > 60 BUN/Creatinine Ratio 23.00 Glucose 212 H (74-105) mg/dL POC Glucose (83-110) mg/dl Lactic Acid (0.5-2.2) mmol/L Calcium 8.7 (8.4-10.2) mg/dl Total Bilirubin 0.9 (0.2-1.0) mg/dL AST 21 (10-42) IU/L ALT 10 (10-60) IU/L Alkaline Phosphatase 90 (42-121) IU/L Troponin I < 0.02 (0.00-0.02) ng/ml B-Natriuretic Peptide 88 (0-100) pg/ml Total Protein 8.1 (6.7-8.2) g/dl Albumin 3.6 (3.2-5.5) g/dl Globulin 4.5 Albumin/Globulin Ratio 0.80 07/21/18 07/21/18 07/21/18 Range/Units 04:48 04:50 09:53 WBC (5.0-10.0) 10^3/uL RBC (4.6-6.2) 10^6/uL Hgb (14.0-18.0) g/dL Hct (40.0-54.0) % MCV (80-100) fL MCH (27.0-34.0) pg MCHC (33.0-35.0) g/dL Plt Count (150-450) 10^3/uL Neut % (Auto) (42.2-75.2) % Lymph % (Auto) (20.5-50.1) % [place] % (Auto) (2-8) % Eos % (Auto) (1.0-3.0) % Baso % (Auto) (0.0-1.0) % ABG pH 7.18 L* (7.35-7.45) ABG pCO2 112 H* (35-45) mmHg ABG pO2 82 (70-100) mmHg ABG HCO3 40.7 H (22-26) mmol/L ABG O2 Saturation 95 (95-100) % ABG Base Excess 8 H ((-2)-(+3)) mmol/L Chriss Test Performed O2 Delivery Device Hi flow nasal cannu Sodium (135-145) mmol/L Potassium (3.6-5.0) mmol/L Chloride (101-111) mmol/L Carbon Dioxide (21.0-31.0) mmol/L Anion Gap BUN (7-18) mg/dL Creatinine (0.6-1.3) mg/dL Est Cr Clr Drug Dosing Estimated GFR (MDRD) BUN/Creatinine Ratio Glucose (74-105) mg/dL POC Glucose 213 H (83-110) mg/dl Lactic Acid 1.4 (0.5-2.2) mmol/L Calcium (8.4-10.2) mg/dl Total Bilirubin (0.2-1.0) mg/dL AST (10-42) IU/L ALT (10-60) IU/L Alkaline Phosphatase (42-121) IU/L Troponin I (0.00-0.02) ng/ml B-Natriuretic Peptide (0-100) pg/ml Total Protein (6.7-8.2) g/dl Albumin (3.2-5.5) g/dl Globulin Albumin/Globulin Ratio Result Diagrams: 07/21/18 04:25 07/21/18 04:25 Problem List Initiated/Reviewed/Updated: Yes Orders Last 24hrs: Active Orders 24 hr Category Date Time Status Patient Status [ADT] Routine ADT 07/21/18 12:38 Active Accu Check [Blood Glucose Check, Bedside] [RC] Q6H Care 07/21/18 12:45 Active Ambulate [RC] ASDIRECTED Care 07/21/18 12:38 Active Height and Weight [RC] DAILY Care 07/21/18 12:38 Active Oxygen Therapy [RC] PRN Care 07/21/18 12:38 Active Peripheral IV Care [RC] . DIRECTED Care 07/21/18 12:38 Active RT BiPAP/CPAP [RC] ASDIRECTED Care 07/21/18 12:38 Active Up With Assistance [RC] ASDIRECTED Care 07/21/18 12:38 Active VTE/DVT Education [RC] PER UNIT ROUTINE Care 07/21/18 12:38 Active Vital Signs [RC] Q4H Care 07/21/18 12:38 Active NPO Now [Nothing per Oral Now Diet] [DIET] Diet 07/21/18 Dinner Active ABG [BLOOD GAS ARTERIAL] [BG] Timed Lab 07/21/18 18:00 Ordered CULTURE BLOOD [BC] Stat Lab 07/21/18 04:50 Received CULTURE BLOOD [] Stat Lab 07/21/18 06:09 Received Budesonide [Pulmicort] Med 07/21/18 12:45 Active 0.5 mg INH DAILY Formoterol Fumarate [Perforomist] Med 07/21/18 12:45 Ordered 2 ml NEB BID Insulin Lispro [HumaLOG] Med 07/21/18 12:45 Ordered See Protocol SUBCUT Q6HR PRN Ipratropium [Atrovent] Med 07/21/18 15:00 Active 0.5 mg INH TIDRT Levothyroxine [Synthroid] Med 07/21/18 12:45 Active 50 mcg IVPUSH DAILY Sodium Chloride 0.9% [Saline Flush] Med 07/21/18 12:38 Active 10 ml FLUSH ASDIRECTED PRN Sodium Chloride 0.9% [Saline Flush] Med 07/21/18 12:38 Active 10 ml FLUSH ASDIRECTED PRN cefTRIAXone [Rocephin] 1,000 mg Med 07/22/18 06:00 Active Sodium Chloride 0.9% [Normal Saline] 100 ml IV Q24H Peripheral IV Insertion Adult [OM.PC] Routine Oth 07/21/18 12:38 Ordered Saline Lock Insert [OM.PC] Routine Oth 07/21/18 12:38 Ordered Resuscitation Status Routine Resus Stat 07/21/18 12:38 Ordered Medication Orders Budesonide (Pulmicort) 0.5 mg INH DAILY SARAH Ceftriaxone Sodium 1,000 mg/ (Sodium Chloride) 100 mls @ 200 mls/hr IV Q24H SARAH Insulin Human Lispro (Humalog) 0 unit SUBCUT Q6HR PRN; Protocol PRN Reason: Blood Glucose Ipratropium [place] (Atrovent) 0.5 mg INH TIDRT SARAH Levothyroxine Sodium (Synthroid) 50 mcg IVPUSH DAILY SARAH Non-Formulary Medication (Formoterol Fumarate [Perforomist]) 2 ml NEB BID SARAH Sodium Chloride (Saline Flush) 10 ml FLUSH ASDIRECTED PRN PRN Reason: Keep Vein Open Sodium Chloride (Saline Flush) 10 ml FLUSH ASDIRECTED PRN PRN Reason: Keep Vein Open Assessment/Plan Comment:: #acute on chronic respiratory failure #Acute hypercapnic respiratory failure #aspiration pneumonia #Severe combined restrictive and obstructive lung disease secondary to ankylosing spondylitis and COPD #altered mental status secondary to severe hypercapnia continue BiPAP Recheck ABG at 1800 hrs. Duonebs every 6 hours [id number] Budesonide/formoterol nebs iv ceftriaxone nothing by mouth for now Gentle IV fluid hydration #History of diabetes mellitus Accu-Cheks, insulin sliding scale for now Nothing by mouth for now. Hold patient's regular insulin for now #History of hypothyroidism IV levothyroxine # DVT prophylaxis SC Lovenox #CODE STATUS DNI and DNR I discussed extensively with the patient's daughterand patient's brother on the prognosis. Prognosis is guarded, patient is critically ill I spent 90 minutes of critical care time in taking care of this patient. Time spent included time spent in counseling and coordinating care, reviewing the chart, and evaluating the patient.
[2018-07-21] MEDS: Albuterol/Ipratropium 3.0-0.5 MG/3 ML Neb Soln NEB SCH ×2 (13:20→17:42)
[2018-07-21] MEDS: Budesonide 0.5 MG/2 ML Neb Susp INH SCH (13:20)
[2018-07-21] MEDS: Sodium Chloride 0.9% 1,000 ML IV SCH (13:21)
[2018-07-21] MEDS: Enoxaparin 40 MG/0.4 ML Syringe SUBCUT SCH (13:21)
[2018-07-21] MEDS: Insulin Lispro 100 Units/ML 3 ML Vial SUBCUT SCH ×2 (14:06→18:11)
[2018-07-21] MEDS ORDERED: Ipratropium 0.02% 0.5 MG/2.5 ML Neb Soln INH SCH (15:00)
[2018-07-21 17:58] LABS: BASE EXCESS ARTERIAL 9 mmol/L ((-2)-(+3)); BICARBONATE,ARTERIAL 43.1 mmol/L (22-26); O2 DELIVERY DEVICE BIPAP; O2 SATURATION ARTERIAL 97 % (95-100); PO2 ARTERIAL 87 mmHg (70-100)
[2018-07-21 18:00] LABS: PCO2 ARTERIAL 134 mmHg (35-45)
[2018-07-21 18:01] LABS: ALLEN TEST PERFORMED
[2018-07-22] MEDS: Insulin Lispro 100 Units/ML 3 ML Vial SUBCUT SCH ×5 (00:10→23:55)
[2018-07-22] MEDS: Albuterol/Ipratropium 3.0-0.5 MG/3 ML Neb Soln NEB SCH ×5 (00:10→23:59)
[2018-07-22] MEDS: Sodium Chloride 0.9% 1,000 ML IV SCH ×2 (02:41→15:56)
[2018-07-22] MEDS: Budesonide 0.5 MG/2 ML Neb Susp INH SCH (09:12)
[2018-07-22] MEDS: Enoxaparin 40 MG/0.4 ML Syringe SUBCUT SCH (09:12)
[2018-07-22] MEDS: FORMOTEROL 20 MCG/2 ML INH SCH ×2 (09:13→21:56)
[2018-07-22 09:29] LABS: BASE EXCESS ARTERIAL 11 mmol/L ((-2)-(+3)); BICARBONATE,ARTERIAL 43.3 mmol/L (22-26); O2 DELIVERY DEVICE BIPAP; O2 SATURATION ARTERIAL 95 % (95-100); PO2 ARTERIAL 75 mmHg (70-100)
[2018-07-22 09:31] LABS: ALLEN TEST PERFORMED; PCO2 ARTERIAL 124 mmHg (35-45)
[2018-07-22 10:26] LABS: ANION GAP 11.3; CHLORIDE,CL 97 mmol/L (101-111); SODIUM,NA 142 mmol/L (135-145)
--- NOTE | 2018-07-22 12:16 | PCM.PN ---
- General Info Date of Service: 07/22/18 Admission Dx/Problem (Free Text): Admission Diagnosis/Problem Admission Diagnosis/Problem Aspiration pneumonia Subjective Update: Patient is more awake today Was on BiPAP overnight Able to converse, however lethargic Repeat ABG does show significant hypercapnea No pain, fever, urinary symptoms - Review of Systems General: Denies: Fever HEENT: Reports: No Symptoms Pulmonary: Reports: Shortness of Breath Cardiovascular: Reports: No Symptoms Gastrointestinal: Reports: No Symptoms Genitourinary: Reports: No Symptoms Musculoskeletal: Reports: No Symptoms Skin: Reports: No Symptoms - Patient Data Vitals - Most Recent: Last Vital Signs Temp 36.3 C 07/22/18 08:31 Pulse 91 07/22/18 08:31 Resp 48 H 07/22/18 08:31 BP 141/50 H 07/22/18 08:31 Pulse Ox 94 L 07/22/18 09:10 Weight - Most Recent: 106.912 kg I&O - Last 24 Hours: Intake & Output 07/21/18 07/22/18 07/22/18 22:59 06:59 14:59 Intake Total 991 101 Output Total 950 Balance 41 101 Lab Results Last 24 Hours: Laboratory Results - last 24 hr 07/21/18 07/21/18 07/21/18 Range/Units 13:34 17:52 17:54 WBC (5.0-10.0) 10^3/uL RBC (4.6-6.2) 10^6/uL Hgb (14.0-18.0) g/dL Hct (40.0-54.0) % MCV (80-100) fL MCH (27.0-34.0) pg MCHC (33.0-35.0) g/dL Plt Count (150-450) 10^3/uL ABG pH 7.13 L* (7.35-7.45) ABG pCO2 134 H* (35-45) mmHg ABG pO2 87 (70-100) mmHg ABG HCO3 43.1 H (22-26) mmol/L ABG O2 Saturation 97 (95-100) % ABG Base Excess 9 H ((-2)-(+3)) mmol/L Chriss Test Performed O2 Delivery Device Bipap Sodium (135-145) mmol/L Potassium (3.6-5.0) mmol/L Chloride (101-111) mmol/L Carbon Dioxide (21.0-31.0) mmol/L Anion Gap BUN (7-18) mg/dL Creatinine (0.6-1.3) mg/dL Est Cr Clr Drug Dosing mL/min Estimated GFR (MDRD) Glucose (74-105) mg/dL POC Glucose 268 H 221 H (83-110) mg/dl Calcium (8.4-10.2) mg/dl 07/22/18 07/22/18 07/22/18 Range/Units 00:07 05:54 09:25 WBC (5.0-10.0) 10^3/uL RBC (4.6-6.2) 10^6/uL Hgb (14.0-18.0) g/dL Hct (40.0-54.0) % MCV (80-100) fL MCH (27.0-34.0) pg MCHC (33.0-35.0) g/dL Plt Count (150-450) 10^3/uL ABG pH 7.17 L* (7.35-7.45) ABG pCO2 124 H* (35-45) mmHg ABG pO2 75 (70-100) mmHg ABG HCO3 43.3 H (22-26) mmol/L ABG O2 Saturation 95 (95-100) % ABG Base Excess 11 H ((-2)-(+3)) mmol/L Chriss Test Performed O2 Delivery Device Bipap Sodium (135-145) mmol/L Potassium (3.6-5.0) mmol/L Chloride (101-111) mmol/L Carbon Dioxide (21.0-31.0) mmol/L Anion Gap BUN (7-18) mg/dL Creatinine (0.6-1.3) mg/dL Est Cr Clr Drug Dosing mL/min Estimated GFR (MDRD) Glucose (74-105) mg/dL POC Glucose 174 H 158 H (83-110) mg/dl Calcium (8.4-10.2) mg/dl 07/22/18 07/22/18 07/22/18 Range/Units 10:00 10:00 11:19 WBC 12.9 H (5.0-10.0) 10^3/uL RBC 4.08 L (4.6-6.2) 10^6/uL Hgb 12.1 L D (14.0-18.0) g/dL Hct 40.8 (40.0-54.0) % MCV 100.0 D (80-100) fL MCH 29.7 (27.0-34.0) pg MCHC 29.7 L (33.0-35.0) g/dL Plt Count 165 (150-450) 10^3/uL ABG pH (7.35-7.45) ABG pCO2 (35-45) mmHg ABG pO2 (70-100) mmHg ABG HCO3 (22-26) mmol/L ABG O2 Saturation (95-100) % ABG Base Excess ((-2)-(+3)) mmol/L Chriss Test O2 Delivery Device Sodium 142 (135-145) mmol/L Potassium 5.3 H (3.6-5.0) mmol/L Chloride 97 L (101-111) mmol/L Carbon Dioxide 39.0 H (21.0-31.0) mmol/L Anion Gap 11.3 BUN 28 H (7-18) mg/dL Creatinine 0.8 (0.6-1.3) mg/dL Est Cr Clr Drug Dosing 75.74 mL/min Estimated GFR (MDRD) > 60 Glucose 162 H (74-105) mg/dL POC Glucose 160 H (83-110) mg/dl Calcium 8.3 L (8.4-10.2) mg/dl Ramírez Results Last 24 Hours: Microbiology 07/21/18 06:09 Aerobic Blood Culture - Preliminary Blood NO GROWTH AFTER 1 DAY Anaerobic Blood Culture - Preliminary NO GROWTH AFTER 1 DAY 07/21/18 04:50 Aerobic Blood Culture - Preliminary Blood NO GROWTH AFTER 1 DAY Anaerobic Blood Culture - Preliminary NO GROWTH AFTER 1 DAY Med Orders - Current: Current Medications Albuterol/Ipratropium (Duoneb 3.0-0.5 Mg/3 Ml) 3 ml NEB Q6HRRT [facility] Last Admin: 07/22/18 07:24 Dose: 3 ml Budesonide (Pulmicort) 0.5 mg INH DAILY [facility] Last Admin: 07/22/18 09:12 Dose: 0.5 mg Enoxaparin Sodium (Lovenox) 40 mg SUBCUT DAILY [facility] Last Admin: 07/22/18 09:12 Dose: 40 mg Ceftriaxone Sodium 1,000 mg/ (Sodium Chloride) 100 mls @ 200 mls/hr IV Q24H [facility] Last Admin: 07/22/18 05:51 Dose: 200 mls/hr Sodium Chloride (Normal Saline) 1,000 mls @ 75 mls/hr IV ASDIRECTED [facility] Last Admin: 07/22/18 02:41 Dose: 75 mls/hr Insulin Human Lispro (Humalog) 0 unit SUBCUT Q6HR SARAH; Protocol Last Admin: 07/22/18 05:55 Dose: 2 units Levothyroxine Sodium (Synthroid) 25 mcg IVPUSH DAILY [facility] Formoterol 20 Mcg/ (2ml Own Med) 0 ml INH BID [facility] Last Admin: 07/22/18 09:13 Dose: 2 ml Sodium Chloride (Saline Flush) 10 ml FLUSH ASDIRECTED PRN PRN Reason: Keep Vein Open Sodium Chloride (Saline Flush) 10 ml FLUSH ASDIRECTED PRN PRN Reason: Keep Vein Open Discontinued Medications Ceftriaxone Sodium 1 gm/ (Sodium Chloride) 50 mls @ 50 mls/hr IV ONETIME ONE Stop: 07/21/18 06:52 Last Admin: 07/21/18 06:15 Dose: 50 mls/hr Azithromycin 500 mg/ Sodium (Chloride) 250 mls @ 250 mls/hr IV ONETIME ONE Stop: 07/21/18 07:33 Last Admin: 07/21/18 07:08 Dose: 250 mls/hr Insulin Human Lispro (Humalog) 0 unit SUBCUT Q6HR PRN; Protocol PRN Reason: Blood Glucose Ipratropium [place] (Atrovent) 0.5 mg INH TIDRT [facility] Levothyroxine Sodium (Synthroid) 50 mcg IVPUSH DAILY [facility] Last Admin: 07/21/18 15:25 Dose: Not Given - Exam General: Alert, Oriented, Lethargic HEENT: Pupils Equal, Pupils Reactive Neck: Supple Lungs: Other (shallow resp effort) Cardiovascular: Regular Rate, Regular Rhythm GI/Abdominal Exam: Normal Bowel Sounds, Soft - Problem List Review Problem List Initiated/Reviewed/Updated: Yes - My Orders Last 24 Hours: My Active Orders 07/21/18 12:38 Patient Status [ADT] Routine Height and Weight [RC] 06 Oxygen Therapy [RC] .PRN Peripheral IV Care [RC] 08,20 RT BiPAP/CPAP [RC] BEDTIME Up With Assistance [RC] ASDIRECTED VTE/DVT Education [RC] PER UNIT ROUTINE Vital Signs [RC] 00,04,08,12,16,20 Sodium Chloride 0.9% [Saline Flush] 10 ml FLUSH ASDIRECTED PRN Sodium Chloride 0.9% [Saline Flush] 10 ml FLUSH ASDIRECTED PRN Peripheral IV Insertion Adult [OM.PC] Routine Saline Lock Insert [OM.PC] Routine Resuscitation Status Routine 07/21/18 12:45 Accu Check [Blood Glucose Check, Bedside] [RC] 00,06,12,18 Budesonide [Pulmicort] 0.5 mg INH DAILY Formoterol Fumarate [Perforomist] 0 ml INH BID 07/21/18 13:00 RT Aerosol Therapy [RC] ASDIRECTED Albuterol/Ipratropium [DuoNeb 3.0-0.5 MG/3 ML] 3 ml NEB Q6HRRT Sodium Chloride 0.9% [Normal Saline] 1,000 ml IV ASDIRECTED 07/21/18 13:15 Enoxaparin [Lovenox] 40 mg SUBCUT DAILY Levothyroxine [Synthroid] 25 mcg IVPUSH DAILY 07/21/18 13:42 Urinary Catheter Assessment [RC] ,07/21/18 13:45 Jerome Catheter Insertion [Insert Urinary Catheter] [OM.PC] Q24H Insulin Lispro [HumaLOG] See Protocol SUBCUT Q6HR 07/21/18 Dinner NPO Now [Nothing per Oral Now Diet] [DIET] 07/22/18 06:00 cefTRIAXone [Rocephin] 1,000 mg Sodium Chloride 0.9% [Normal Saline] 100 ml IV Q24H 07/22/18 11:33 Wound Care [RC] DAILY 07/23/18 05:11 BASIC METABOLIC PANEL,BMP [CHEM] AM CBC W/O DIFF,HEMOGRAM [HEME] AM 07/24/18 05:11 BASIC METABOLIC PANEL,BMP [CHEM] AM CBC W/O DIFF,HEMOGRAM [HEME] AM 07/25/18 05:11 BASIC METABOLIC PANEL,BMP [CHEM] AM CBC W/O DIFF,HEMOGRAM [HEME] AM 07/26/18 05:11 BASIC METABOLIC PANEL,BMP [CHEM] AM CBC W/O DIFF,HEMOGRAM [HEME] AM - Plan Plan:: #acute on chronic respiratory failure #Acute hypercapnic respiratory failure #aspiration pneumonia #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 Duonebs every 6 hours [id number] Budesonide/formoterol nebs iv ceftriaxone soft diet + nectar thin liquids Gentle IV fluid hydration #History of diabetes mellitus Accu-Cheks, insulin sliding scale for now Nothing by mouth for now. Hold patient's regular insulin for now #History of hypothyroidism IV levothyroxine # DVT prophylaxis SC Lovenox #CODE STATUS DNI and DNR I discussed extensively with the patient's family on the prognosis. Prognosis is guarded, patient is critically ill I spent 45 minutes of critical care time in taking care of this patient. Time spent included time spent in counseling and coordinating care, reviewing the chart, and evaluating the patient.
[2018-07-22] MEDS ORDERED: Simethicone 80 MG Tab.Chew PO PRN (13:10)
[2018-07-22] MEDS ORDERED: traMADol 50 MG Tab PO PRN (13:11)
[2018-07-22] MEDS: Pantoprazole 40 MG Vial IVPUSH SCH (13:31)
[2018-07-22 17:34] LABS: BASE EXCESS ARTERIAL 10 mmol/L ((-2)-(+3)); BICARBONATE,ARTERIAL 43.1 mmol/L (22-26); O2 DELIVERY DEVICE BIPAP; O2 SATURATION ARTERIAL 94 % (95-100); PO2 ARTERIAL 72 mmHg (70-100)
[2018-07-22 17:36] LABS: ALLEN TEST PERFORMED; PCO2 ARTERIAL 124 mmHg (35-45)
[2018-07-22] MEDS: Lidocaine 5% 700 MG Patch TOP SCH (17:58)
[2018-07-22] MEDS ORDERED: Remove Patch LIDOCAINE TRDERM SCH (21:00)
[2018-07-23] MEDS: Sodium Chloride 0.9% 1,000 ML IV SCH (06:28)
[2018-07-23] MEDS: Insulin Lispro 100 Units/ML 3 ML Vial SUBCUT SCH (06:52)
[2018-07-23 06:55] LABS: ANION GAP 13.6; CHLORIDE,CL 98 mmol/L (101-111); SODIUM,NA 145 mmol/L (135-145)
[2018-07-23] MEDS: Albuterol/Ipratropium 3.0-0.5 MG/3 ML Neb Soln NEB SCH ×2 (07:53→14:23)
[2018-07-23] MEDS: FORMOTEROL 20 MCG/2 ML INH SCH (09:17)
[2018-07-23] MEDS: Budesonide 0.5 MG/2 ML Neb Susp INH SCH (09:17)
[2018-07-23] MEDS: Lidocaine 5% 700 MG Patch TOP SCH (09:25)
[2018-07-23] MEDS ORDERED: Sodium Polystyrene Sulfonate 15 GM/60 ML Susp 60 ML Bot PO ONE ×2 (10:00→11:00)
[2018-07-23] MEDS ORDERED: Sodium Bicarbonate 8.4% 50 MEQ/50 ML Syringe IVPUSH ONE (10:00)
[2018-07-23] MEDS: Pantoprazole 40 MG Vial IVPUSH SCH (10:03)
[2018-07-23] MEDS: Enoxaparin 40 MG/0.4 ML Syringe SUBCUT SCH (10:05)
[2018-07-23 10:08] LABS: BASE EXCESS ARTERIAL 10 mmol/L ((-2)-(+3)); BICARBONATE,ARTERIAL 43.8 mmol/L (22-26); O2 DELIVERY DEVICE BIPAP; O2 SATURATION ARTERIAL 93 % (95-100); PO2 ARTERIAL 67 mmHg (70-100)
[2018-07-23 10:09] LABS: ALLEN TEST PERFORMED; PCO2 ARTERIAL 132 mmHg (35-45)
[2018-07-23] MEDS ORDERED: Calcium Gluconate 10% 1 GM/10 ML SDV IVPUSH ONE ×2 (10:15)
[2018-07-23] MEDS ORDERED: cefTRIAXone 1 GM in Sodium Chloride 0.9% 100 ML IV SCH (10:30)
[2018-07-23] MEDS ORDERED: LORazepam 2 MG/ML Syringe IVPUSH PRN ×2 (11:40→16:30)
--- NOTE | 2018-07-23 11:40 | PCM.PN ---
- General Info Date of Service: 07/23/18 Admission Dx/Problem (Free Text): Admission Diagnosis/Problem Admission Diagnosis/Problem Aspiration pneumonia Subjective Update: Patient is still lethargic Was on BiPAP overnight Only answers yes or no questions Had one episode of hemoptysis overnight Repeat ABG shows significant hypercapnea, no improvement despite 2 days of BiPAP No pain, fever, urinary symptoms - Review of Systems General: Reports: Other (can't obtain full ROS due to AMS. He however says "no" when asked about any pain) - Patient Data Vitals - Most Recent: Last Vital Signs Temp 37.1 C 07/22/18 23:43 Pulse 90 07/23/18 08:00 Resp 44 H 07/23/18 08:00 BP 145/60 H 07/22/18 23:43 Pulse Ox 92 L 07/23/18 08:00 Weight - Most Recent: 105.233 kg I&O - Last 24 Hours: Intake & Output 07/22/18 07/23/18 07/23/18 22:59 06:59 14:59 Output Total 750 700 Balance -750 -700 Lab Results Last 24 Hours: Laboratory Results - last 24 hr 07/22/18 07/22/18 07/22/18 Range/Units 17:28 18:01 23:29 WBC (5.0-10.0) 10^3/uL RBC (4.6-6.2) 10^6/uL Hgb (14.0-18.0) g/dL Hct (40.0-54.0) % MCV (80-100) fL MCH (27.0-34.0) pg MCHC (33.0-35.0) g/dL Plt Count (150-450) 10^3/uL ABG pH 7.17 L* (7.35-7.45) ABG pCO2 124 H* (35-45) mmHg ABG pO2 72 (70-100) mmHg ABG HCO3 43.1 H (22-26) mmol/L ABG O2 Saturation 94 L (95-100) % ABG Base Excess 10 H ((-2)-(+3)) mmol/L Chriss Test Performed O2 Delivery Device Bipap Sodium (135-145) mmol/L Potassium (3.6-5.0) mmol/L Chloride (101-111) mmol/L Carbon Dioxide (21.0-31.0) mmol/L Anion Gap BUN (7-18) mg/dL Creatinine (0.6-1.3) mg/dL Est Cr Clr Drug Dosing mL/min Estimated GFR (MDRD) Glucose (74-105) mg/dL POC Glucose 195 H 171 H (83-110) mg/dl Calcium (8.4-10.2) mg/dl 07/23/18 07/23/18 07/23/18 Range/Units 06:15 06:15 06:40 WBC 11.3 H (5.0-10.0) 10^3/uL RBC 4.30 L (4.6-6.2) 10^6/uL Hgb 12.4 L (14.0-18.0) g/dL Hct 44.1 (40.0-54.0) % MCV 102.6 H (80-100) fL MCH 28.8 (27.0-34.0) pg MCHC 28.1 L (33.0-35.0) g/dL Plt Count 188 (150-450) 10^3/uL ABG pH (7.35-7.45) ABG pCO2 (35-45) mmHg ABG pO2 (70-100) mmHg ABG HCO3 (22-26) mmol/L ABG O2 Saturation (95-100) % ABG Base Excess ((-2)-(+3)) mmol/L Chriss Test O2 Delivery Device Sodium 145 (135-145) mmol/L Potassium 5.6 H (3.6-5.0) mmol/L Chloride 98 L (101-111) mmol/L Carbon Dioxide 39.0 H (21.0-31.0) mmol/L Anion Gap 13.6 BUN 26 H (7-18) mg/dL Creatinine 0.8 (0.6-1.3) mg/dL Est Cr Clr Drug Dosing 75.74 mL/min Estimated GFR (MDRD) > 60 Glucose 178 H (74-105) mg/dL POC Glucose 175 H (83-110) mg/dl Calcium 8.4 (8.4-10.2) mg/dl 07/23/18 Range/Units 10:00 WBC (5.0-10.0) 10^3/uL RBC (4.6-6.2) 10^6/uL Hgb (14.0-18.0) g/dL Hct (40.0-54.0) % MCV (80-100) fL MCH (27.0-34.0) pg MCHC (33.0-35.0) g/dL Plt Count (150-450) 10^3/uL ABG pH 7.15 L* (7.35-7.45) ABG pCO2 132 H* (35-45) mmHg ABG pO2 67 L (70-100) mmHg ABG HCO3 43.8 H (22-26) mmol/L ABG O2 Saturation 93 L (95-100) % ABG Base Excess 10 H ((-2)-(+3)) mmol/L Chriss Test Performed O2 Delivery Device Bipap Sodium (135-145) mmol/L Potassium (3.6-5.0) mmol/L Chloride (101-111) mmol/L Carbon Dioxide (21.0-31.0) mmol/L Anion Gap BUN (7-18) mg/dL Creatinine (0.6-1.3) mg/dL Est Cr Clr Drug Dosing mL/min Estimated GFR (MDRD) Glucose (74-105) mg/dL POC Glucose (83-110) mg/dl Calcium (8.4-10.2) mg/dl Ramírez Results Last 24 Hours: Microbiology 07/21/18 06:09 Aerobic Blood Culture - Preliminary Blood NO GROWTH AFTER 2 DAYS Anaerobic Blood Culture - Preliminary NO GROWTH AFTER 2 DAYS 07/21/18 04:50 Aerobic Blood Culture - Preliminary Blood NO GROWTH AFTER 2 DAYS Anaerobic Blood Culture - Preliminary NO GROWTH AFTER 2 DAYS Med Orders - Current: Current Medications Albuterol/Ipratropium (Duoneb 3.0-0.5 Mg/3 Ml) 3 ml NEB Q6HRRT [facility] Last Admin: 07/23/18 07:53 Dose: 3 ml Budesonide (Pulmicort) 0.5 mg INH DAILY [facility] Last Admin: 07/23/18 09:17 Dose: Not Given Enoxaparin Sodium (Lovenox) 40 mg SUBCUT DAILY [facility] Last Admin: 07/23/18 10:05 Dose: Not Given Fentanyl (Sublimaze) 25 mcg IVPUSH Q1H PRN PRN Reason: Pain (severe 7-10) Sodium Chloride (Normal Saline) 1,000 mls @ 75 mls/hr IV ASDIRECTED [facility] Last Admin: 07/23/18 06:28 Dose: 75 mls/hr Ceftriaxone Sodium 1 gm/ (Sodium Chloride) 100 mls @ 200 mls/hr IV Q24H [facility] Insulin Human Lispro (Humalog) 0 unit SUBCUT Q6HR [facility]; Protocol Last Admin: 07/23/18 06:52 Dose: 2 units Levothyroxine Sodium (Synthroid) 50 mcg PO ACBREAKFAST [facility] Lidocaine (Lidoderm 5%) 700 mg TOP DAILY [facility] Last Admin: 07/23/18 09:25 Dose: Not Given Miscellaneous Information (Remove Patch) 1 ea TRDERM DAILY@2100 [facility] Last Admin: 07/22/18 21:57 Dose: Not Given Formoterol 20 Mcg/ (2ml Own Med) 0 ml INH BID [facility] Last Admin: 07/23/18 09:17 Dose: Not Given Pantoprazole Sodium (Protonix Iv) 40 mg IVPUSH DAILY [facility] Last Admin: 07/23/18 10:03 Dose: Not Given Simethicone (Simethicone) 80 mg PO TIDAC PRN PRN Reason: Gas Last Admin: 07/22/18 13:31 Dose: 80 mg Sodium Chloride (Saline Flush) 10 ml FLUSH ASDIRECTED PRN PRN Reason: Keep Vein Open Sodium Chloride (Saline Flush) 10 ml FLUSH ASDIRECTED PRN PRN Reason: Keep Vein Open Tramadol HCl (Ultram) 50 mg PO Q6H PRN PRN Reason: Pain Last Admin: 07/22/18 13:31 Dose: 50 mg Discontinued Medications Calcium Gluconate (Calcium Gluconate) 1 gm IVPUSH ONETIME ONE Stop: 07/23/18 10:16 Last Admin: 07/23/18 11:00 Dose: 1 gm Ceftriaxone Sodium 1 gm/ (Sodium Chloride) 50 mls @ 50 mls/hr IV ONETIME ONE Stop: 07/21/18 06:52 Last Admin: 07/21/18 06:15 Dose: 50 mls/hr Azithromycin 500 mg/ Sodium (Chloride) 250 mls @ 250 mls/hr IV ONETIME ONE Stop: 07/21/18 07:33 Last Admin: 07/21/18 07:08 Dose: 250 mls/hr Ceftriaxone Sodium 1,000 mg/ (Sodium Chloride) 100 mls @ 200 mls/hr IV Q24H [facility] Last Admin: 07/23/18 06:25 Dose: 200 mls/hr Insulin Human Lispro (Humalog) 0 unit SUBCUT Q6HR PRN; Protocol PRN Reason: Blood Glucose Ipratropium [place] (Atrovent) 0.5 mg INH TIDRT [facility] Levothyroxine Sodium (Synthroid) 50 mcg IVPUSH DAILY [facility] Last Admin: 07/21/18 15:25 Dose: Not Given Levothyroxine Sodium (Synthroid) 25 mcg IVPUSH DAILY [facility] Sodium Bicarbonate (Sodium Bicarbonate 8.4%) 50 meq IVPUSH ONETIME ONE Stop: 07/23/18 10:01 Last Admin: 07/23/18 11:00 Dose: 50 meq Sodium Polystyrene Sulfonate (Kayexalate) 45 gm PO NOW ONE Stop: 07/23/18 10:01 Sodium Polystyrene Sulfonate (Kayexalate) 15 gm PO ONETIME ONE Stop: 07/23/18 11:01 Last Admin: 07/23/18 11:27 Dose: 15 gm - Exam General: Lethargic HEENT: Pupils Equal Neck: Supple Lungs: Other (poor air entry bilaterally) Cardiovascular: Regular Rate, Regular Rhythm GI/Abdominal Exam: Distended - Problem List Review Problem List Initiated/Reviewed/Updated: Yes - My Orders Last 24 Hours: My Active Orders 07/22/18 11:33 Wound Care [RC] 08,20 07/22/18 13:10 Simethicone 80 mg PO TIDAC PRN 07/22/18 13:11 traMADol [Ultram] 50 mg PO Q6H PRN 07/22/18 13:15 Pantoprazole [ProTONIX IV] 40 mg IVPUSH DAILY 07/22/18 15:51 fentaNYL [Sublimaze] 25 mcg IVPUSH Q1H PRN 07/22/18 16:00 Lidocaine 5% [Lidoderm 5%] 700 mg TOP DAILY 07/22/18 20:40 K Pad [Heat Therapy] [OM.PC] Routine 07/22/18 21:00 Remove Patch 1 ea TRDERM DAILY@2100 07/22/18 Lunch Soft Diet [DIET] 07/23/18 10:30 cefTRIAXone [Rocephin] 1 gm Sodium Chloride 0.9% [Normal Saline] 100 ml IV Q24H 07/23/18 10:53 Code Status [Resuscitation Status] Routine 07/23/18 18:00 POTASSIUM,K [CHEM] Timed 07/23/18 Breakfast Thickened Liquids [DIET] 07/24/18 05:11 BASIC METABOLIC PANEL,BMP [CHEM] AM CBC W/O DIFF,HEMOGRAM [HEME] AM 07/24/18 06:00 Levothyroxine [Synthroid] 50 mcg PO ACBREAKFAST 07/25/18 05:11 BASIC METABOLIC PANEL,BMP [CHEM] AM CBC W/O DIFF,HEMOGRAM [HEME] AM 07/26/18 05:11 BASIC METABOLIC PANEL,BMP [CHEM] AM CBC W/O DIFF,HEMOGRAM [HEME] AM - Plan Plan:: #acute on chronic respiratory failure #Acute hypercapnic respiratory failure #aspiration pneumonia #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 Will switch code status Stop BiPAP High flow oxygen by nasal canula for comfort Pain mgt Can give ativan if agitated #History of diabetes mellitus Accu-Cheks, insulin sliding scale for now Nothing by mouth for now. Hold patient's regular insulin for now #History of hypothyroidism oral levothyroxine # DVT prophylaxis SC Lovenox #CODE STATUS DNI and DNR/COMFORT CARE I discussed extensively with the patient's family on the prognosis. Prognosis is guarded, patient is critically ill I spent 35 minutes of critical care time in taking care of this patient. Time spent included time spent in counseling and coordinating care, reviewing the chart, and evaluating the patient.
[2018-07-23] MEDS ORDERED: Ketorolac 30 MG/ML SDV IVPUSH ONE (14:00)
[2018-07-23] MEDS ORDERED: Lidocaine 5% 700 MG Patch TOP SCH (14:00)
[2018-07-23] MEDS: fentaNYL 100 MCG/2 ML SDV IVPUSH PRN ×2 (15:48→16:48)
[2018-07-23] MEDS ORDERED: Remove Patch LIDOCAINE TRDERM SCH (21:00)
[2018-07-24] MEDS ORDERED: Levothyroxine 50 MCG Tab PO SCH (06:00)
--- NOTE | 2018-07-25 10:17 | PCM.DCSUM1 ---
Discharge Summary - Hospital Course Free Text/Narrative:: 73 yo M with a complex past medical history including severe combined restrictive and obstructive lung disease with chronic respiratory failure secondary to ankylosing spondylitis and COPD, insulin-dependent diabetes mellitus, hyperlipidemia, history of cardiac arrest with return of spontaneous circulation and prolonged admission, bladder cancer who presents with respiratory distress, altered mental status. The patient is unable to give a history due to altered mental status. Daughter was at the bedside and she provided history. Patient reportedly had some ice cream yesterday and choked on it, and since then has had difficulty breathing with lapse into altered mental status later in the night Patient does have a history of poor swallowing, high aspiration risk, but he has preferred to have quality of life with regular diet, rather than restrictions to diet or feeding tube. he does have a history of recurrent aspiration, chronic respiratory failure and has a home BiPAP support. In the ED, chest x-ray showed low lung volumes, he was hypoxic and was stated on BiPAP. Had that an ABG when he came down to the flow rates are markedly severe hypercapnia with a partial pressure of carbon dioxide of 112 MMHG. Code status is DNR/DNI HAd 2 days of nearly continuous BiPAP without any significant improvement in hypercapnea Family decided on Comfort care measures BiPAP stopped Patient on 07/23/18 - Discharge Data Discharge Date: 07/23/18 Discharge Disposition: 20 Condition: - Discharge Plan *PRESCRIPTION DRUG MONITORING PROGRAM REVIEWED*: Not Applicable *COPY OF PRESCRIPTION DRUG MONITORING REPORT IN PATIENT ISAAC: Not Applicable Home Medications: Home Meds Insulin Aspart [NovoLOG] 10 units SQ TIDMEALS 06/02/17 [History] Insulin Glarg,Human.Rec.Analog [Lantus] 24 units SQ BEDTIME 06/02/17 [History] Levothyroxine [Synthroid] 50 mcg PO DAILY 06/02/17 [History] Metoprolol Tartrate 50 mg PO BID 06/02/17 [History] Rosuvastatin [Crestor] 20 mg PO WITHDINNER 06/02/17 [History] Formoterol Fumarate [Perforomist] 2 ml NEB BID 06/08/18 [History] Nystatin 1 applic TOP BID PRN 06/08/18 [History] Potassium Gluconate [Potassium] 99 mg PO DAILY 06/08/18 [History] Budesonide [Pulmicort] 2 ml INH DAILY 07/21/18 [History] Furosemide 20 mg PO DAILY 07/21/18 [History] Ipratropium [Atrovent] 2.5 ml INH TID 07/21/18 [History] Forms: ED Department Discharge Referrals: PCP,None [Ordering Only Provider] - - Discharge Summary/Plan Comment DC Time >30 min.: No - Patient Data Vitals - Most Recent: Last Vital Signs Temp 37.1 C 07/22/18 23:43 Pulse 94 07/23/18 14:23 Resp 44 H 07/23/18 13:09 BP 145/60 H 07/22/18 23:43 Pulse Ox 91 L 07/23/18 14:23 Weight - Most Recent: 105.233 kg NAYELY Results - Last 24 hrs: Microbiology 07/21/18 06:09 Aerobic Blood Culture - Preliminary Blood NO GROWTH AFTER 4 DAYS Anaerobic Blood Culture - Preliminary NO GROWTH AFTER 4 DAYS 07/21/18 04:50 Aerobic Blood Culture - Preliminary Blood NO GROWTH AFTER 4 DAYS Anaerobic Blood Culture - Preliminary NO GROWTH AFTER 4 DAYS Med Orders - Current: Current Medications Discontinued Medications Albuterol/Ipratropium (Duoneb 3.0-0.5 Mg/3 Ml) 3 ml NEB Q6HRRT [facility] Last Admin: 07/23/18 14:23 Dose: 3 ml Budesonide (Pulmicort) 0.5 mg INH DAILY [facility] Last Admin: 07/23/18 09:17 Dose: Not Given Calcium Gluconate (Calcium Gluconate) 1 gm IVPUSH ONETIME ONE Stop: 07/23/18 10:16 Last Admin: 07/23/18 11:00 Dose: 1 gm Enoxaparin Sodium (Lovenox) 40 mg SUBCUT DAILY [facility] Last Admin: 07/23/18 10:05 Dose: Not Given Fentanyl (Sublimaze) 25 mcg IVPUSH Q1H PRN PRN Reason: Pain (severe 7-10) Last Admin: 07/23/18 16:48 Dose: 25 mcg Ceftriaxone Sodium 1 gm/ (Sodium Chloride) 50 mls @ 50 mls/hr IV ONETIME ONE Stop: 07/21/18 06:52 Last Admin: 07/21/18 06:15 Dose: 50 mls/hr Azithromycin 500 mg/ Sodium (Chloride) 250 mls @ 250 mls/hr IV ONETIME ONE Stop: 07/21/18 07:33 Last Admin: 07/21/18 07:08 Dose: 250 mls/hr Ceftriaxone Sodium 1,000 mg/ (Sodium Chloride) 100 mls @ 200 mls/hr IV Q24H [facility] Last Admin: 07/23/18 06:25 Dose: 200 mls/hr Sodium Chloride (Normal Saline) 1,000 mls @ 75 mls/hr IV ASDIRECTED [facility] Last Admin: 07/23/18 06:28 Dose: 75 mls/hr Ceftriaxone Sodium 1 gm/ (Sodium Chloride) 100 mls @ 200 mls/hr IV Q24H [facility] Last Admin: 07/23/18 13:00 Dose: Not Given Insulin Human Lispro (Humalog) 0 unit SUBCUT Q6HR PRN; Protocol PRN Reason: Blood Glucose Insulin Human Lispro (Humalog) 0 unit SUBCUT Q6HR [facility]; Protocol Last Admin: 07/23/18 06:52 Dose: 2 units Ipratropium [place] (Atrovent) 0.5 mg INH TIDRT [facility] Ketorolac Tromethamine (Toradol) 30 mg IVPUSH ONETIME ONE Stop: 07/23/18 14:01 Last Admin: 07/23/18 14:52 Dose: 30 mg Levothyroxine Sodium (Synthroid) 50 mcg IVPUSH DAILY [facility] Last Admin: 07/21/18 15:25 Dose: Not Given Levothyroxine Sodium (Synthroid) 25 mcg IVPUSH DAILY [facility] Levothyroxine Sodium (Synthroid) 50 mcg PO ACBREAKFAST [facility] Lidocaine (Lidoderm 5%) 700 mg TOP DAILY [facility] Last Admin: 07/23/18 09:25 Dose: Not Given Lidocaine (Lidoderm 5%) 700 mg TOP DAILY [facility] Last Admin: 07/23/18 16:17 Dose: Not Given Lorazepam (Ativan) 2 mg IVPUSH ASDIRECTED PRN PRN Reason: Agitation Last Admin: 07/23/18 15:49 Dose: 2 mg Lorazepam (Ativan) 2 mg IVPUSH Q2HR PRN PRN Reason: Agitation Miscellaneous Information (Remove Patch) 1 ea TRDERM DAILY@2100 [facility] Last Admin: 07/22/18 21:57 Dose: Not Given Miscellaneous Information (Remove Patch) 1 ea TRDERM DAILY@2100 [facility] Formoterol 20 Mcg/ (2ml Own Med) 0 ml INH BID [facility] Last Admin: 07/23/18 09:17 Dose: Not Given Pantoprazole Sodium (Protonix Iv) 40 mg IVPUSH DAILY [facility] Last Admin: 07/23/18 10:03 Dose: Not Given Simethicone (Simethicone) 80 mg PO TIDAC PRN PRN Reason: Gas Last Admin: 07/22/18 13:31 Dose: 80 mg Sodium Bicarbonate (Sodium Bicarbonate 8.4%) 50 meq IVPUSH ONETIME ONE Stop: 07/23/18 10:01 Last Admin: 07/23/18 11:00 Dose: 50 meq Sodium Chloride (Saline Flush) 10 ml FLUSH ASDIRECTED PRN PRN Reason: Keep Vein Open Sodium Chloride (Saline Flush) 10 ml FLUSH ASDIRECTED PRN PRN Reason: Keep Vein Open Sodium Polystyrene Sulfonate (Kayexalate) 45 gm PO NOW ONE Stop: 07/23/18 10:01 Last Admin: 07/23/18 13:00 Dose: Not Given Sodium Polystyrene Sulfonate (Kayexalate) 15 gm PO ONETIME ONE Stop: 07/23/18 11:01 Last Admin: 07/23/18 11:27 Dose: Not Given Tramadol HCl (Ultram) 50 mg PO Q6H PRN PRN Reason: Pain (moderate 4-6) Last Admin: 07/22/18 13:31 Dose: 50 mg
== END 2018-07-23 18:38 | disposition expired | DRG 177 ==
LOC: DL.ED 04:26 → DL.MS 07:06 → UNDOADMIN 07:06 → DL.MS 12:38
PROVIDERS: ADMIT Hospitalist; ATTEND Hospitalist
PROC: 5A09457 Assistance with Respiratory Ventilation, 24-96 Consecutive Hours, Continuous Positive Airway Pressure (ICD-10-PCS; principal; 2018-07-21)
DX: J44.0 Chronic obstructive pulmonary disease with (acute) lower respiratory infection (principal); J69.0 Pneumonitis due to inhalation of food and vomit; J96.21 Acute and chronic respiratory failure with hypoxia; J96.22 Acute and chronic respiratory failure with hypercapnia; J44.1 Chronic obstructive pulmonary disease with (acute) exacerbation; I13.0 Hypertensive heart and chronic kidney disease with heart failure and stage 1 through stage 4 chronic kidney disease, or unspecified chronic kidney disease; E11.9 Type 2 diabetes mellitus without complications; Z51.5 Encounter for palliative care; E78.5 Hyperlipidemia, unspecified; Z66 Do not resuscitate; Z79.890 Hormone replacement therapy; H91.90 Unspecified hearing loss, unspecified ear; H54.7 Unspecified visual loss; I50.9 Heart failure, unspecified; I48.91 Unspecified atrial fibrillation; M81.0 Age-related osteoporosis without current pathological fracture; E11.22 Type 2 diabetes mellitus with diabetic chronic kidney disease; F41.9 Anxiety disorder, unspecified; M45.9 Ankylosing spondylitis of unspecified sites in spine; E03.9 Hypothyroidism, unspecified; E66.9 Obesity, unspecified; Z96.649 Presence of unspecified artificial hip joint; N18.9 Chronic kidney disease, unspecified; Z99.2 Dependence on renal dialysis; Z79.4 Long term (current) use of insulin; Z87.891 Personal history of nicotine dependence; Z85.51 Personal history of malignant neoplasm of bladder; Z79.899 Other long term (current) drug therapy; Z90.89 Acquired absence of other organs; Z68.36 Body mass index [BMI] 36.0-36.9, adult; Z86.74 Personal history of sudden cardiac arrest
CPT/HCPCS: 36415; 36600; 51702; 71045; 80048; 80053; 82803; 82962; 83605; 83880; 84484; 85025; 85027; 87040; 93005; 94640; 94660; 94760; 96365; 96367; 99285-25; A9270-GY; C9113; J0456; J0696; J1650; J1815; J1885; J2060; J3010; J7030; J7050; J7620-GY